=== PATIENT | female | born 2000 | race Two or more races ===

== ENCOUNTER 2025-06-06 08:48 | Emergency (ER) | payer SELFPAY ==
[2025-06-06 08:49] VITALS: BP 148/97; PULSE 86; RESP 17; TEMP 37.2; O2SAT 97
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
[2025-06-06] MEDS: FLUORESCEIN SOD 1 MG STRP BOTH EYES (09:55)
[2025-06-06] MEDS: TETRACAINE PF OP SOL 0.5% 4 ML DRPETTE 1 DROP LEFT EYE (09:55)
[2025-06-06] MEDS: Erythromycin Op Oint 0.5% 1 GM PACKET LEFT EYE (09:55)
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
[2025-06-06 10:54] VITALS: BP 133/92; PULSE 88; RESP 17; O2SAT 100
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
[2025-06-06] MEDS: KETOROLAC INJ 30 MG/ML VIAL 60 MG IM (11:34)
[2025-06-06 12:20] VITALS: BP 134/96; PULSE 89; RESP 18; TEMP 36.9; O2SAT 98
== END 2025-06-06 12:20 | disposition home or self-care (01) ==
LOC: SERX 12:16
PROVIDERS: Emergency Provider Family Medicine; PCP Nurse Practitioner Primary Care
DX: T26.02XA Burn of left eyelid and periocular area, initial encounter (principal); S05.02XA Injury of conjunctiva and corneal abrasion without foreign body, left eye, initial encounter; W40.0XXA Explosion of blasting material, initial encounter
CPT/HCPCS: 96372; 99283; J1885; A9270